=== PATIENT | male | born 1990 | race Caucasian/White ===

== ENCOUNTER 2018-01-21 13:20 | Emergency (ER) | payer OTHER ==
[~2018-01-21] VITALS: Ht 172.7 cm; Wt 88.6 kg
[~2018-01-21 13:20] MED LIST: DIVA500T52 PO; DIVA500T69 PO; NALT50TA10 PO; NALT50TA6 PO; OLAN10TA22 PO; OLAN10TA6 PO
[2018-01-21] MEDS ORDERED: CITA10TA68 PO (13:44)
[2018-01-21] MEDS ORDERED: RISP.5 PO (13:44)
[2018-01-21 14:17] VITALS: BP 138/71
[2018-01-21] MEDS ORDERED: DOXYCYCLINE HYCLATE 100 MG CAPSULE PO ONE (14:30)
[2018-01-21] MEDS ORDERED: MINERAL OIL/PETROLATUM 120 GM CREAM TP ONE (14:30)
== END 2018-01-21 15:06 | disposition home or self-care (01) ==
LOC: EMS 13:20
DX: L73.9 Follicular disorder, unspecified (principal); F20.9 Schizophrenia, unspecified; Z79.899 Other long term (current) drug therapy

== ENCOUNTER 2018-02-08 10:56 | Emergency (ER) | payer OTHER ==
[~2018-02-08] VITALS: Ht 172.7 cm; Wt 90.5 kg
[~2018-02-08 10:56] MED LIST changes: +CITA10TA68 PO; -DIVA500T52 PO; -NALT50TA10 PO; -OLAN10TA22 PO; +RISP.5 PO
[2018-02-08] MEDS ORDERED: IBUPROFEN 800 MG TABLET PO ONE (13:00)
[2018-02-08] MEDS ORDERED: PERTUSS(ACELL),DIPH,TET VAC/PF 0.5 ML VIAL IM ONE (13:00)
[2018-02-08 13:41] VITALS: BP 124/73
== END 2018-02-08 13:41 | disposition home or self-care (01) ==
LOC: EMS 11:01
DX: L03.011 Cellulitis of right finger (principal); Z79.899 Other long term (current) drug therapy
CPT/HCPCS: 90471; 90715

== ENCOUNTER 2018-03-20 17:14 | Emergency (ER) | payer OTHER ==
[~2018-03-20] VITALS: Ht 172.7 cm; Wt 90.5 kg
[2018-03-20 20:18] LABS: BASOPHILS % (AUTO) 0.1 % (0.0-2.0); EOSINOPHILS % (AUTO) 0 % (1.0-6.0); HEMOGLOBIN 16.4 g/dL (13.5-17.5); LYMPHOCYTES # (AUTO) 0.5 K/uL (1.0-4.8); LYMPHOCYTES % (AUTO) 4.8 % (22.0-44.0); MEAN CORPUSCULAR HEMOGLOBIN 29.4 pg (26.0-34.0); MEAN CORPUSCULAR HGB CONC 34.1 G/dL (31.0-37.0); MEAN CORPUSCULAR VOLUME 86 fL (80-100); MONOCYTES # (AUTO) 0.3 K/uL (0.1-1.0); MONOCYTES % (AUTO) 3.2 % (2.0-9.0); NEUTROPHILS # (AUTO) 8.7 K/uL (1.8-7.7); PLATELET COUNT (AUTO) 175 K/uL (150-450); RED BLOOD CELL COUNT(AUTO) 5.56 MIL/uL (4.50-5.90); RED CELL DISTRIBUTION WIDTH 14.3 % (11.5-14.5)
[2018-03-20 20:26] LABS: NEUTROPHILS % (AUTO) 91.9 % (40.0-70.0)
[2018-03-20 20:33] LABS: ANION GAP 13 mmol/L (8-16); CALCIUM, TOTAL 8.9 mg/dL (8.8-10.5); CARBON DIOXIDE 25 mmol/L (22-29); CHLORIDE 99 mmol/L (98-107); CREATININE 1.15 mg/dL (0.60-1.30); GLOMERULAR FILTR. RATE CALC > 60 mL/min (>60); GLUCOSE,RANDOM 107 mg/dL (70-110); SODIUM SERUM 137 mmol/L (136-145); UREA NITROGEN, BLOOD 15 mg/dL (7-18)
[2018-03-20 20:41] LABS: ALANINE AMINOTRANSFERASE 23 U/L (12-78); ALBUMIN 4.2 g/dL (3.4-5.0); ALKALINE PHOSPHATASE 73 U/L (46-116); ASPARTATE AMINOTRANSFERASE 21 U/L (15-37); BILIRUBIN,TOTAL 0.7 mg/dL (0.1-1.0); LIPASE 113 U/L (73-393)
[2018-03-20 21:11] LABS: APPEARANCE,URINE CLEAR (CLEAR); BILIRUBIN,URINE NEGATIVE (NEGATIVE); GLUCOSE, URINE (UA) NEGATIVE (NEGATIVE); KETONES,URINE 15 mg/dL (NEGATIVE); LEUKOCYTE ESTERASE ,URINE NEGATIVE (NEGATIVE); NITRATE,URINE NEGATIVE (NEGATIVE); OCCULT BLOOD,URINE NEGATIVE (NEGATIVE); PROTEIN,URINE NEGATIVE (NEGATIVE); UROBILINOGEN,URINE 0.2 mg/dL (<=1.0)
[2018-03-20] MEDS ORDERED: SODIUM CHLORIDE 0.9% 1,000 ML IV ONE (21:30)
[2018-03-20] MEDS ORDERED: ONDANSETRON HCL 4 MG/2 ML VIAL IVP ONE (21:30)
[2018-03-20 22:00] VITALS: BP 114/72
== END 2018-03-20 22:27 | disposition home or self-care (01) ==
LOC: EMS 17:15
DX: K52.9 Noninfective gastroenteritis and colitis, unspecified (principal); F20.9 Schizophrenia, unspecified
CPT/HCPCS: 36415; 80053; 81003; 83690; 85025; 96361; 96374; 99283; J2405; J7030

== ENCOUNTER 2018-09-23 21:37 | Emergency (ER) | payer OTHER ==
[~2018-09-23] VITALS: Ht 172.7 cm; Wt 94.1 kg
[~2018-09-23 21:37] MED LIST changes: -DIVA500T69 PO; -NALT50TA6 PO; -OLAN10TA6 PO
[2018-09-23] MEDS ORDERED: VALB80CA PO (22:00)
[2018-09-23] MEDS ORDERED: BENZ1TAB10 PO (22:00)
[2018-09-23 22:03] LABS: BASOPHILS % (AUTO) 0.2 % (0.0-2.0); EOSINOPHILS % (AUTO) 0.8 % (1.0-6.0); HEMATOCRIT 42.8 % (41-53); HEMOGLOBIN 14.7 g/dL (13.5-17.5); LYMPHOCYTES # (AUTO) 1.2 K/uL (1.0-4.8); LYMPHOCYTES % (AUTO) 15.7 % (22.0-44.0); MEAN CORPUSCULAR HEMOGLOBIN 29.2 pg (26.0-34.0); MEAN CORPUSCULAR HGB CONC 34.4 G/dL (31.0-37.0); MEAN CORPUSCULAR VOLUME 85 fL (80-100); MONOCYTES # (AUTO) 0.5 K/uL (0.1-1.0); MONOCYTES % (AUTO) 5.8 % (2.0-9.0); NEUTROPHILS # (AUTO) 6.1 K/uL (1.8-7.7); NEUTROPHILS % (AUTO) 77.5 % (40.0-70.0); PLATELET COUNT (AUTO) 167 K/uL (150-450); RED BLOOD CELL COUNT(AUTO) 5.05 MIL/uL (4.50-5.90); RED CELL DISTRIBUTION WIDTH 14.1 % (11.5-14.5)
[2018-09-23 22:08] LABS: APPEARANCE,URINE CLEAR (CLEAR); BILIRUBIN,URINE NEGATIVE (NEGATIVE); GLUCOSE, URINE (UA) NEGATIVE (NEGATIVE); KETONES,URINE NEGATIVE (NEGATIVE); LEUKOCYTE ESTERASE ,URINE NEGATIVE (NEGATIVE); NITRATE,URINE NEGATIVE (NEGATIVE); OCCULT BLOOD,URINE NEGATIVE (NEGATIVE); PROTEIN,URINE NEGATIVE (NEGATIVE); UROBILINOGEN,URINE 0.2 mg/dL (<=1.0)
[2018-09-23 22:20] LABS: AMPHET/METH SCREEN,URINE NEGATIVE (NEGATIVE); BARBITURATE SCREEN, URINE NEGATIVE (NEGATIVE); BENZODIAZEPINES SCREEN,URINE NEGATIVE (NEGATIVE); CANNABINOID SCREEN,URINE NEGATIVE (NEGATIVE); COCAINE SCREEN,URINE NEGATIVE (NEGATIVE); METHADONE SCREEN, URINE NEGATIVE (NEGATIVE); OPIATE SCREEN,URINE NEGATIVE (NEGATIVE); PHENCYCLIDINE SCREEN,URINE NEGATIVE (NEGATIVE)
[2018-09-23 22:25] LABS: ANION GAP 13 mmol/L (8-16); CALCIUM, TOTAL 9.2 mg/dL (8.8-10.5); CARBON DIOXIDE 22 mmol/L (22-29); CHLORIDE 100 mmol/L (98-107); CREATININE 1.07 mg/dL (0.60-1.30); GLOMERULAR FILTR. RATE CALC > 60 mL/min (>60); GLUCOSE,RANDOM 100 mg/dL (70-110); POTASSIUM 3.3 mmol/L (3.5-5.1); SODIUM SERUM 135 mmol/L (136-145); UREA NITROGEN, BLOOD 11 mg/dL (7-18)
[2018-09-23 22:32] LABS: ALANINE AMINOTRANSFERASE 29 U/L (12-78); ALBUMIN 4.3 g/dL (3.4-5.0); ALKALINE PHOSPHATASE 70 U/L (46-116); ASPARTATE AMINOTRANSFERASE 24 U/L (15-37); BILIRUBIN,TOTAL 0.6 mg/dL (0.1-1.0); LIPASE 138 U/L (73-393); TOTAL PROTEIN, SERUM 8.2 g/dL (6.4-8.2)
[2018-09-23] MEDS ORDERED: LORazepam 1 MG TABLET PO ONE (23:30)
[2018-09-23] MEDS ORDERED: DOCUSATE SODIUM 100 MG CAPSULE PO ONE (23:30)
[2018-09-24 01:16] VITALS: BP 119/75
== END 2018-09-24 01:23 | disposition home or self-care (01) ==
LOC: EMS 21:39
DX: F41.9 Anxiety disorder, unspecified (principal); K59.00 Constipation, unspecified; F20.9 Schizophrenia, unspecified; Z79.899 Other long term (current) drug therapy
CPT/HCPCS: 36415; 80053; 80307; 81003; 83690; 85025; 99284; G0480

== ENCOUNTER 2019-01-10 19:22 | Emergency (ER) | payer OTHER ==
[~2019-01-10] VITALS: Ht 172.7 cm; Wt 89.1 kg
[~2019-01-10 19:22] MED LIST changes: +BENZ1TAB10 PO; +VALB80CA PO
[2019-01-10 21:42] LABS: BASOPHILS % (AUTO) 0.4 % (0.0-2.0); EOSINOPHILS % (AUTO) 0.4 % (1.0-6.0); HEMATOCRIT 43.9 % (41-53); HEMOGLOBIN 14.8 g/dL (13.5-17.5); LYMPHOCYTES # (AUTO) 1.1 K/uL (1.0-4.8); LYMPHOCYTES % (AUTO) 11.3 % (22.0-44.0); MEAN CORPUSCULAR HEMOGLOBIN 29.4 pg (26.0-34.0); MEAN CORPUSCULAR HGB CONC 33.8 G/dL (31.0-37.0); MEAN CORPUSCULAR VOLUME 87 fL (80-100); MONOCYTES # (AUTO) 0.5 K/uL (0.1-1.0); MONOCYTES % (AUTO) 5.1 % (2.0-9.0); NEUTROPHILS # (AUTO) 7.8 K/uL (1.8-7.7); NEUTROPHILS % (AUTO) 82.8 % (40.0-70.0); PLATELET COUNT (AUTO) 176 K/uL (150-450); RED BLOOD CELL COUNT(AUTO) 5.05 MIL/uL (4.50-5.90)
[2019-01-10 22:02] LABS: ANION GAP 13 mmol/L (8-16); CALCIUM, TOTAL 9.8 mg/dL (8.8-10.5); CARBON DIOXIDE 24 mmol/L (22-29); CHLORIDE 104 mmol/L (98-107); GLOMERULAR FILTR. RATE CALC > 60 mL/min (>60); GLUCOSE,RANDOM 106 mg/dL (70-110); POTASSIUM 3.6 mmol/L (3.5-5.1); SODIUM SERUM 141 mmol/L (136-145); UREA NITROGEN, BLOOD 10 mg/dL (7-18)
[2019-01-10 22:07] LABS: ALANINE AMINOTRANSFERASE 28 U/L (12-78); ALBUMIN 4.3 g/dL (3.4-5.0); ALKALINE PHOSPHATASE 66 U/L (46-116); ASPARTATE AMINOTRANSFERASE 17 U/L (15-37); BILIRUBIN,TOTAL 0.4 mg/dL (0.1-1.0); TOTAL PROTEIN, SERUM 8.4 g/dL (6.4-8.2)
[2019-01-10 22:18] LABS: AMPHET/METH SCREEN,URINE NEGATIVE (NEGATIVE); BARBITURATE SCREEN, URINE NEGATIVE (NEGATIVE); CANNABINOID SCREEN,URINE NEGATIVE (NEGATIVE); COCAINE SCREEN,URINE NEGATIVE (NEGATIVE); METHADONE SCREEN, URINE NEGATIVE (NEGATIVE); OPIATE SCREEN,URINE NEGATIVE (NEGATIVE)
[2019-01-10 22:27] LABS: BENZODIAZEPINES SCREEN,URINE NEGATIVE (NEGATIVE); PHENCYCLIDINE SCREEN,URINE NEGATIVE (NEGATIVE)
[2019-01-10] MEDS ORDERED: LORazepam 2 MG TABLET PO ONE (23:15)
[2019-01-10] MEDS ORDERED: OLANZapine 5 MG TABLET PO ONE (23:15)
[2019-01-10 23:32] VITALS: BP 130/80
== END 2019-01-10 23:50 | disposition home or self-care (01) ==
LOC: EMS 19:23
DX: F20.0 Paranoid schizophrenia (principal); F41.9 Anxiety disorder, unspecified; Z79.899 Other long term (current) drug therapy
CPT/HCPCS: 36415; 80053; 80307; 85025; 99284; G0480

== ENCOUNTER 2019-09-24 02:20 | Emergency (ER) | payer OTHER ==
[~2019-09-24] VITALS: Ht 172.7 cm; Wt 90.9 kg
[~2019-09-24 02:20] MED LIST changes: -CITA10TA68 PO; +CITA10TA99 PO; -RISP.5 PO; +RISP0.5T20 PO
[2019-09-24] MEDS ORDERED: RISP1TAB27 PO (02:33)
[2019-09-24] MEDS ORDERED: CITA-144 PO (02:33)
[2019-09-24] MEDS ORDERED: BENZ2TAB10 PO (02:33)
[2019-09-24 02:57] LABS: BASOPHILS % (AUTO) 0.3 % (0.0-2.0); EOSINOPHILS % (AUTO) 0.3 % (1.0-6.0); HEMATOCRIT 41.7 % (41-53); HEMOGLOBIN 14.2 g/dL (13.5-17.5); LYMPHOCYTES # (AUTO) 1.1 K/uL (1.0-4.8); LYMPHOCYTES % (AUTO) 14.3 % (22.0-44.0); MEAN CORPUSCULAR HEMOGLOBIN 29.6 pg (26.0-34.0); MEAN CORPUSCULAR HGB CONC 34.1 G/dL (31.0-37.0); MEAN CORPUSCULAR VOLUME 87 fL (80-100); MONOCYTES # (AUTO) 0.4 K/uL (0.1-1.0); MONOCYTES % (AUTO) 4.6 % (2.0-9.0); NEUTROPHILS # (AUTO) 6.4 K/uL (1.8-7.7); NEUTROPHILS % (AUTO) 80.5 % (40.0-70.0); PLATELET COUNT (AUTO) 174 K/uL (150-450); RED BLOOD CELL COUNT(AUTO) 4.81 MIL/uL (4.50-5.90); RED CELL DISTRIBUTION WIDTH 14.1 % (11.5-14.5)
[2019-09-24] MEDS ORDERED: LORazepam 1 MG TABLET PO ONE (03:00)
[2019-09-24] MEDS ORDERED: HALOPERIDOL 5 MG TABLET PO ONE (03:00)
[2019-09-24 03:08] LABS: ANION GAP 12 mmol/L (8-16); CALCIUM, TOTAL 9.5 mg/dL (8.8-10.5); CARBON DIOXIDE 22 mmol/L (22-29); CHLORIDE 99 mmol/L (98-107); CREATININE 0.91 mg/dL (0.60-1.30); GLOMERULAR FILTR. RATE CALC > 60 mL/min (>60); GLUCOSE,RANDOM 109 mg/dL (70-110); POTASSIUM 3.6 mmol/L (3.5-5.1); SODIUM SERUM 133 mmol/L (136-145); UREA NITROGEN, BLOOD 9 mg/dL (7-18)
[2019-09-24 03:14] LABS: ALANINE AMINOTRANSFERASE 25 U/L (12-78); ALBUMIN 4.6 g/dL (3.4-5.0); ALKALINE PHOSPHATASE 66 U/L (46-116); ASPARTATE AMINOTRANSFERASE 19 U/L (15-37); BILIRUBIN,TOTAL 0.7 mg/dL (0.1-1.0); TOTAL PROTEIN, SERUM 8.7 g/dL (6.4-8.2)
[2019-09-24 03:15] VITALS: BP 123/84
== END 2019-09-24 03:26 | disposition home or self-care (01) ==
LOC: EMS 02:20
DX: F20.9 Schizophrenia, unspecified (principal); F41.9 Anxiety disorder, unspecified; Z90.49 Acquired absence of other specified parts of digestive tract
CPT/HCPCS: 36415; 80053; 85025; 99284; G0480

== ENCOUNTER 2019-10-07 19:38 | Emergency (ER) | payer OTHER ==
[~2019-10-07] VITALS: Ht 172.7 cm; Wt 86.4 kg
[~2019-10-07 19:38] MED LIST changes: -BENZ1TAB10 PO; +BENZ2TAB10 PO; +CITA-144 PO; -CITA10TA99 PO; -RISP0.5T20 PO; +RISP1TAB27 PO
[2019-10-07 20:35] VITALS: BP 118/80
== END 2019-10-07 20:36 | disposition home or self-care (01) ==
LOC: EMS 19:40
DX: L02.11 Cutaneous abscess of neck (principal); F20.9 Schizophrenia, unspecified; F41.9 Anxiety disorder, unspecified; Z90.49 Acquired absence of other specified parts of digestive tract
CPT/HCPCS: 99283; Z7502

== ENCOUNTER 2019-10-10 16:21 | Emergency (ER) | payer OTHER ==
[~2019-10-10] VITALS: Ht 172.7 cm; Wt 97.5 kg
[2019-10-10 19:53] VITALS: BP 115/78
== END 2019-10-10 20:28 | disposition home or self-care (01) ==
LOC: EMS 16:22
DX: L02.212 Cutaneous abscess of back [any part, except buttock and flank] (principal); F41.9 Anxiety disorder, unspecified; F20.9 Schizophrenia, unspecified
CPT/HCPCS: Z7502

== ENCOUNTER 2019-10-14 13:29 | Emergency (ER) | payer OTHER ==
[~2019-10-14] VITALS: Ht 172.7 cm; Wt 88.6 kg
[2019-10-14 14:50] VITALS: BP 118/64
== END 2019-10-14 14:59 | disposition home or self-care (01) ==
LOC: EMS 13:30
DX: L03.221 Cellulitis of neck (principal); F41.9 Anxiety disorder, unspecified; F20.9 Schizophrenia, unspecified; Z79.899 Other long term (current) drug therapy
CPT/HCPCS: Z7502

== ENCOUNTER 2019-12-11 12:35 | Emergency (ER) | payer OTHER ==
[~2019-12-11] VITALS: Ht 172.7 cm; Wt 89.1 kg
[2019-12-11] MEDS ORDERED: CLON-592 PO (12:41)
[2019-12-11] MEDS ORDERED: OLAN5TAB2 PO (12:41)
[2019-12-11] MEDS ORDERED: CefTRIAXone SODIUM 1 GM/VIAL IM ONE (14:30)
[2019-12-11] MEDS ORDERED: LIDOCAINE 1% 10 ML VIAL INJ ONE (14:30)
[2019-12-11] MEDS ORDERED: LIDOCAINE/PF 1% 2 ML VIAL IM ONE (14:30)
[2019-12-11 15:45] VITALS: BP 110/83
== END 2019-12-11 16:17 | disposition home or self-care (01) ==
LOC: EMS 12:39
DX: L02.612 Cutaneous abscess of left foot (principal); F17.210 Nicotine dependence, cigarettes, uncomplicated; F41.9 Anxiety disorder, unspecified; F20.9 Schizophrenia, unspecified
CPT/HCPCS: 10060; 96372; 99283; J0696; J3490 ×2

== ENCOUNTER 2020-03-04 11:32 | Emergency (ER) | payer OTHER ==
[~2020-03-04] VITALS: Ht 172.7 cm; Wt 89.1 kg
[~2020-03-04 11:32] MED LIST changes: -CITA-144 PO; +CLON-592 PO; +OLAN5TAB2 PO; -RISP1TAB27 PO
[2020-03-04] MEDS ORDERED: RISP1TAB48 PO (11:37)
[2020-03-04] MEDS ORDERED: ALBUTEROL SULFATE HFA 90 MCG/PUFF 8 GM INHALER IH ONE (12:45)
[2020-03-04 12:56] VITALS: BP 120/65
[2020-03-04 14:20] LABS: INFLUENZA TYPE A NEGATIVE FOR TYPE A (NEGATIVE); INFLUENZA TYPE B NEGATIVE FOR TYPE B (NEGATIVE)
== END 2020-03-04 13:17 | disposition home or self-care (01) ==
LOC: EMS 11:32
DX: B34.9 Viral infection, unspecified (principal); J20.9 Acute bronchitis, unspecified; M79.10 Myalgia, unspecified site; F41.9 Anxiety disorder, unspecified; F20.9 Schizophrenia, unspecified; F17.210 Nicotine dependence, cigarettes, uncomplicated; Z20.828 Contact with and (suspected) exposure to other viral communicable diseases; Z88.5 Allergy status to narcotic agent
CPT/HCPCS: 87804; 94640; 99283; U0003; J3535

== ENCOUNTER 2020-04-05 12:00 | Emergency (ER) | payer OTHER ==
[~2020-04-05] VITALS: Ht 177.8 cm; Wt 97.7 kg
[~2020-04-05 12:00] MED LIST changes: +RISP1TAB48 PO
[2020-04-05 12:05] VITALS: BP 119/67
[2020-04-05] MEDS ORDERED: CITA40TA6 PO (13:44)
[2020-04-05] MEDS ORDERED: PROP10TA73 PO (13:44)
[2020-04-05] MEDS ORDERED: MUPIROCIN CALCIUM 2% 22 GM OINTMENT TP ONE (13:45)
== END 2020-04-05 14:24 | disposition home or self-care (01) ==
LOC: EMS 12:05
DX: L73.9 Follicular disorder, unspecified (principal); F17.210 Nicotine dependence, cigarettes, uncomplicated; F41.9 Anxiety disorder, unspecified
CPT/HCPCS: 99406

== ENCOUNTER 2022-07-22 09:51 | Emergency (ER) | payer OTHER ==
[~2022-07-22] VITALS: Ht 172.7 cm; Wt 91.0 kg
[~2022-07-22 09:51] MED LIST changes: -BENZ2TAB10 PO; +BENZ2TAB76 PO; +CITA-108 PO; -OLAN5TAB2 PO; +OLAN5TAB52 PO; +PROP10TA73 PO
[2022-07-22] MEDS ORDERED: ARIP10TA38 PO (09:58)
[2022-07-22] MEDS ORDERED: RISP0.5T39 PO (09:58)
[2022-07-22] MEDS ORDERED: PROP10TA72 PO (09:58)
[2022-07-22] MEDS ORDERED: BENZ0.5T49 PO (09:58)
[2022-07-22] MEDS ORDERED: DIPH50CA37 PO (11:49)
[2022-07-22] MEDS ORDERED: PRED-554 PO (11:49)
[2022-07-22 12:01] VITALS: BP 107/65
== END 2022-07-22 12:03 | disposition home or self-care (01) ==
LOC: EMS 10:00
DX: L23.9 Allergic contact dermatitis, unspecified cause (principal); L73.9 Follicular disorder, unspecified; F20.0 Paranoid schizophrenia; F41.9 Anxiety disorder, unspecified; F17.210 Nicotine dependence, cigarettes, uncomplicated; Z90.49 Acquired absence of other specified parts of digestive tract; Z88.5 Allergy status to narcotic agent
CPT/HCPCS: 99282; Z7502

== ENCOUNTER 2023-04-13 11:28 | Emergency (ER) | payer OTHER ==
[~2023-04-13] VITALS: Ht 172.7 cm; Wt 109.1 kg
[~2023-04-13 11:28] MED LIST changes: +ARIP10TA38 PO; +BENZ0.5T6 PO; -BENZ2TAB76 PO; -CLON-592 PO; +DIPH50CA37 PO; -OLAN5TAB52 PO; +PRED-554 PO; +PROP10TA72 PO; -PROP10TA73 PO; +RISP0.5T39 PO
[2023-04-13 11:48] VITALS: TEMP 97.8
[2023-04-13] MEDS ORDERED: CEPH-558 PO (16:14)
[2023-04-13] MEDS ORDERED: DIPH25CA85 PO (16:14)
[2023-04-13] MEDS ORDERED: TRI2515O TP (16:14)
[2023-04-13 16:37] VITALS: BP 132/84; PULSE 84; RESP 16
== END 2023-04-13 16:38 | disposition home or self-care (01) ==
LOC: EMS 11:48
DX: L30.9 Dermatitis, unspecified (principal); F41.9 Anxiety disorder, unspecified; F20.9 Schizophrenia, unspecified; F17.200 Nicotine dependence, unspecified, uncomplicated; Z90.49 Acquired absence of other specified parts of digestive tract
CPT/HCPCS: 99283